=== PATIENT | male | born 1975 | race Caucasian/White ===

== ENCOUNTER → 2017-10-15 | Outpatient (CLI) | payer OTHER ==
[~2017-10-15] MED LIST: CEPH-13 PO; HYDR-385 PO; IBUP-56 PO
--- NOTE | 2017-10-15 18:13 | RADIOLOGY IMAGING REPORT ---
FACILITY: [facility] - [place] PATIENT NAME: Jesus Ngo : 1975 MR: [id number] V: [id number] EXAM DATE: ORDERING PHYSICIAN: JESUS WARD TECHNOLOGIST: Location: [facility] Patient: Jesus Ngo : 1975 Visit/Account:[id number] Date of Sevice: 10/15/2017 Examination: ULTRASOUND OF THE SCROTUM AND TESTES Comparison: None available. History: Right testicle swelling. Findings: Standard ultrasound of the testicles and scrotum with color flow and spectral analysis. Right testicle: 5.7 x 3.1 x 4.6 cm. Heterogeneously enlarged testicle containing at least 2 dominant masses. Within the lateral/midportion of the testicle is a 2.2 x 2.4 x 1.8 cm heterogeneous mass and in the medial/inferior testicle is a 2.2 x 2.8 x 1.8 cm mass. Both masses demonstrate increased inter nal vascularity on Doppler interrogation. Right epididymis: Within normal limits. Left testicle: 2.9 x 1.7 x 2.5 cm. Morphologically normal left testicle with normal waveforms on Dopp ler interrogation. Left epididymis: Within normal limits. Hydrocele: None Varicocele: None Scrotum: Negative. IMPRESSION: Asymmetrically enlarged right testicle containing at least two masses is highly suspicious for a test icular malignancy. Changes secondary to trauma or infection are considered less likely. Results were discussed with JESUS WARD at 10/15/2017 6:07 PM. Report Dictated By: Kev Slaughter MD at 10/15/2017 5:56 PM Report E-Signed By: Kev Slaughter MD at 10/15/2017 6:08 PM WSN:[id number]
== END ==
LOC: US 15:56
DX: N50.9 Disorder of male genital organs, unspecified (principal)
CPT/HCPCS: 76870

== ENCOUNTER 2017-10-18 07:50 | Observation (INO) | payer OTHER ==
[2017-10-18] VITALS (22 sets, daily range): BP systolic 91–133; BP diastolic 58–90
[~2017-10-18] VITALS: Ht 177.8 cm; Wt 85.7 kg
[2017-10-18] MEDS ORDERED: fentaNYL CITR 250 MCG/5 ML AMP ONE (10:07)
[2017-10-18] MEDS ORDERED: LIDOCAINE MPF 1% 5 ML VIAL ONE (10:08)
[2017-10-18] MEDS ORDERED: PROPOFOL EMUL(*) 10MG/ML 20 ML 20 ML ONE (10:08)
[2017-10-18] MEDS ORDERED: DEXAMETHASONE SOD PHOS 10MG/ML ONE (10:08)
[2017-10-18] MEDS ORDERED: ONDANSETRON 4 MG/2 ML VIAL ONE (10:08)
[2017-10-18 10:17] LABS: PLATELET COUNT, AUTOMATED 164 K/uL (150-450)
[2017-10-18] MEDS ORDERED: cefTRIAXone(*) 1 GM VIAL 1 GM in NS(*) 0.9% 100 ML ADDVANT BAG 100 ML IVPB ONE (10:30)
[2017-10-18] MEDS ORDERED: NORMOSOL R SOLN(*) 1000 ML BAG 1,000 ML IV PRN (10:30)
[2017-10-18] MEDS ORDERED: LIDOCAINE/SOD BICARB 8.4% SYR ID ONE (10:30)
[2017-10-18] MEDS ORDERED: cefTRIAXone 1 GM VIAL IVP ONE (10:30)
[2017-10-18] MEDS ORDERED: MIDAZOLAM 2 MG/2 ML VIAL IVP PRN (10:30)
[2017-10-18] MEDS ORDERED: FAMOTIDINE 20 MG TAB PO ONE (10:30)
[2017-10-18] MEDS ORDERED: KETAMINE HCL 200 MG/20 ML MDV ONE (11:17)
[2017-10-18] MEDS ORDERED: POVIDONE IOD 10% OINT 30 GM TB TP ONE (11:17)
[2017-10-18] MEDS ORDERED: ceFAZolin(*) 1 GM VIAL 1 GM, GENTAMICIN(*) 80 MG/2 ML VIAL 60 MG in NS 0.9% IRRIGATION ... IR ONE ×2 (11:25)
[2017-10-18] MEDS ORDERED: ROCURONIUM BROM 10 MG/ML 5 ML ONE (11:30)
--- NOTE | 2017-10-18 12:28 | RADIOLOGY IMAGING REPORT ---
FACILITY: [facility] - [place] PATIENT NAME: Jesus Ngo : 1975 MR: [id number] V: [id number] EXAM DATE: ORDERING PHYSICIAN: JESUS WARD TECHNOLOGIST: Location: [facility] Patient: Jesus Ngo : 1975 Visit/Account:[id number] Date of Sevice: 10/16/2017 Exam type: CHEST PA AND LAT History: Smoker, preop Comparison: None. Findings: The lungs are free of acute effusions, infiltrates or edema. The cardiac silhouette is normal in siz e. The trachea is in midline. IMPRESSION: 1. No acute cardiopulmonary process is seen Report Dictated By: Fadumo Hewitt MD at 10/18/2017 12:24 PM Report E-Signed By: Fadumo Hewitt MD at 10/18/2017 12:25 PM WSN:[email or web address]
[2017-10-18] MEDS ORDERED: KETOROLAC 30 MG/ML VIAL ONE (13:13)
[2017-10-18] MEDS ORDERED: fentaNYL CITR 100 MCG/2 ML AMP ONE (13:29)
[2017-10-18] MEDS ORDERED: HYDROmorphone HCL 2 MG/ML SDV ONE (13:40)
[2017-10-18] MEDS ORDERED: ACETAMIN/CODEINE #3 300-30 MG PO PRN (14:40)
[2017-10-18] MEDS ORDERED: FLUSH 10 ML SYR IVP PRN (14:40)
[2017-10-18] MEDS ORDERED: ZOLPIDEM TARTRATE 5 MG TAB PO PRN (14:40)
[2017-10-18] MEDS ORDERED: NALOXONE HCL 0.4 MG/ML VIAL IVP PRN (14:40)
[2017-10-18] MEDS ORDERED: HYDROmorphone PCA 6 MG/30 ML IV PRN (14:40)
[2017-10-18] MEDS: LR(*) 1000 ML BAG 1,000 ML IV PRN (14:57)
[2017-10-18] MEDS ORDERED: ONDANSETRON 4 MG/2 ML VIAL IVP PRN (15:05)
[2017-10-18] MEDS ORDERED: GENTAMICIN(*) 80 MG/2 ML VIAL 160 MG in NS(*) 0.9% 100 ML BAG 100 ML IVPB ONE (16:00)
[2017-10-18] MEDS: BENZALKONIUM CL 1:750 TOP SOLN TP SCH (21:00)
[2017-10-18] MEDS: FAMOTIDINE 20 MG TAB PO SCH (21:35)
[2017-10-18] MEDS: DOCUSATE SODIUM 100 MG CAP PO SCH (21:35)
[2017-10-18] MEDS: NEOMYCIN/POLYMYX/BACITR OINT 1 PACKET TP SCH (21:35)
[2017-10-18] MEDS: GENTAMICIN/NS 80 MG/100 ML PB 100 ML IVPB SCH (23:52)
[2017-10-19] MEDS: LR(*) 1000 ML BAG 1,000 ML IV PRN (01:08)
[2017-10-19 03:13] VITALS: BP 122/65
[2017-10-19 07:21] VITALS: BP 115/70
[2017-10-19] MEDS: GENTAMICIN/NS 80 MG/100 ML PB 100 ML IVPB SCH (07:32)
[2017-10-19] MEDS: BENZALKONIUM CL 1:750 TOP SOLN TP SCH (09:00)
[2017-10-19] MEDS ORDERED: cefTRIAXone 1 GM VIAL IVP ONE (09:15)
[2017-10-19] MEDS ORDERED: APAP/HYDROCODONE 325/7.5 TAB PO ONE (09:20)
[2017-10-19] MEDS ORDERED: FAMO20TA28 PO (09:25)
[2017-10-19] MEDS ORDERED: CIPR-214 PO (09:25)
[2017-10-19] MEDS ORDERED: HYDR-4308 PO (09:25)
[2017-10-19] MEDS ORDERED: IBUP800T37 PO (09:26)
[2017-10-19] MEDS ORDERED: DOCU-416 PO (09:26)
[2017-10-19] MEDS: FAMOTIDINE 20 MG TAB PO SCH (09:35)
[2017-10-19] MEDS: DOCUSATE SODIUM 100 MG CAP PO SCH (09:35)
[2017-10-19] MEDS: NEOMYCIN/POLYMYX/BACITR OINT 1 PACKET TP SCH (09:35)
--- NOTE | 2017-10-19 10:39 | OPERATIVE REPORT 1 ---
EVENT DATE: October 18, 2017 SURGEON: Jac Baker MD ANESTHESIOLOGIST: Migue Cavanaugh MD ANESTHESIA: General PREOPERATIVE DIAGNOSIS Right testicular lesion, etiology ? POSTOPERATIVE DIAGNOSIS Right testicular lesion, etiology ? PROCEDURE PERFORMED 1. Exploration of right testicle and groin area. 2. Right radical orchiectomy. 3. Right Bassini herniorrhaphy. 4. 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 DESCRIPTION OF PROCEDURE Under general anesthetic, the patient was prepped and draped in the supine position. Incision was made along the right groin area. Tissue was excised down to the underlying external oblique fascia. The external oblique fascia was incised from the external ring area to the internal ring area. The cord was freed from its attachments and clamped off. The right testicle was manipulated from the right hemiscrotum into the incisional area and isolated. The tissues were dissected from the testicle and the cord cephalad to the internal ring area. The vas deferens was isolated at the internal ring area, tied off with 2-0 chromic catgut suture. There was a large lipomatous cord that was from the cord and cross- clamped and tied off with 0 chromic catgut suture. The testicle was explored at the internal ring area. There was an approximately 1-inch hernia dissected off the proximal cord and reflected into the abdominal cavity. The cord was cross-clamped with large right angle clamps. The most proximal clamp was removed and a free tie was placed over the clamped tissue with #1 silk suture. A tie was placed less than 1 mm and distal to the free tie with #1 silk suture. The cord was divided between the clamps. The cord was hemoclipped. The stump was retracted into the infra-abdominal cavity. The conjoined tendon was brought down to the shelving margin of Poupart's ligament throughout its length. It started at the external ring area and then closed it off the internal ring area. The nerve was identified and preserved. The conjoined tendon was brought down to the shelving margin of Poupart's ligament throughout the length of the incision. This satisfactorily shored up the floor of the inguinal canal and and closed the internal ring area. The wound was irrigated with double antibiotic solution several times throughout the procedure as well as the scrotum. The external oblique was closed with interrupted 2-0 silk ligatures throughout its length. The wound was irrigated with double antibiotic solution. The subcutaneous tissue was closed with interrupted 3-0 plain catgut. The skin was closed with running 4-0 Vicryl subcuticular. The wound was cleaned and dressed in the usual fashion. Glue was applied to the incision and steri-strips. Estimated blood loss was just a few mL. The patient tolerated the procedure satisfactorily and returned to the recovery room in satisfactory condition. This is a 42-year-old white male who presented to the office this past Wednesday complaining of enlarged right testicle for approximately 1-1/2 weeks' duration. The testicles were relatively pain free but two to three times larger than the right testicle. The patient noticed after dirt biking approximately 1-1/2 weeks prior to that time had noticed about three days later the swollen right testicle. There is no rubor, calor and no more pain. Options were discussed with the patient. The beta HCG test was negative and all laboratory studies were negative and within normal limits. Pathological diagnosis is pending. The patient will be discharged home in the a.m. if all is going well, to force fluids, 12 glasses of water per day, activities are restricted to careful ambulation. The patient is to continue his usual medications. A copy of instructions was given to the patient. The patient will be discharged on Cipro, Pepcid, Motrin and Truxton therapy in addition to his usual medications. MTDD
[2017-10-19] MEDS ORDERED: cefTRIAXone 1 GM VIAL IVP SCH (12:00)
== END 2017-10-19 09:11 | disposition home or self-care (01) ==
LOC: OR 07:50 → ICU 14:27
DX: C62.91 Malignant neoplasm of right testis, unspecified whether descended or undescended (principal); F17.200 Nicotine dependence, unspecified, uncomplicated
CPT/HCPCS: 36415; 49505; 54520; 71046; 82105; 83615; 84702; 85025; 88307; G0378; J0696; J1100; J1170; J1580; J1885; J2001; J2250; J2405; J2704; J3010; J3490; J7050; J7120; 82040; 82247; 82310; 82374; 82435; 82565; 82947; 84075; 84132; 84155; 84295; 84450; 84460; 84520

== ENCOUNTER → 2017-12-08 | Outpatient (CLI) | payer OTHER ==
[~2017-12-08] MED LIST changes: +CIPR-214 PO; +DOCU-416 PO; +FAMO20TA28 PO; +HYDR-4308 PO; +IBUP800T37 PO; +IOPAMIDOL 76% 75 ML INFUS BTL 75 ML ONE
--- NOTE | 2017-12-08 16:42 | RADIOLOGY IMAGING REPORT ---
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 Coronal and sagittal reformatting also performed. Dose Lowering Technique One of the following dose optimization techniques was utilized in the performance of this exam: Autom ated exposure control; adjustment of the mA and/or kV according to the patient's size; or use of an i terative reconstruction technique. Specific details can be referenced in the facility's radiology C T exam operational policy. CONTRAST: 75 mL Isovue-370 COMPARISON: US testicular ultrasound October 15, 2017 FINDINGS: Visualized lung bases: Negative. Hepatobiliary: Negative. Spleen: Accessory splenule Adrenals: Negative. Pancreas: Negative. Kidneys ureters or bladder: Negative. Genitalia: There appears to been a right orchiectomy. The right seminal vesicle appears mildly prominent and appears to contain a 7 mm rounded hypoattenuat ing lesion GI: There is no evidence of bowel obstruction or bowel wall thickening. The appendix is visualized and does not appear inflamed. Vessels/spaces/nodes: There is an abnormal appearing 1.9 x 1.8 x 2.9 cm lymph node just below the le tara of the left renal vein. This may actually represent two contiguous lymph nodes. There are addit ional smaller subcentimeter retroperitoneal lymph nodes Cm aortic caval lymph node Bones/soft tissues: There is a small umbilical hernia containing fat. Just above the level the umbi licus is an additional small ventral hernia also containing fat. There is a left inguinal hernia containing fat . There are mild spondylotic changes in the lumbar spine Additional findings: None pertinent. IMPRESSION: Postsurgical changes from a right orchiectomy. The right seminal vesicle appears mildly prominent appears to contain a 7 mm rounded hypoattenuating lesion There is an abnormal appearing 1.9 x 1.8 x 2.9 cm lymph node just below the level of the left renal v ein. This may actually represent two contiguous lymph nodes Small umbilical hernia and small ventral hernia just above the umbilicus both containing fat Left inguinal hernia containing fat Report Dictated By: Fadumo Hewitt MD at 12/08/2017 4:28 PM Report E-Signed By: Fadumo Hewitt MD at 12/08/2017 4:37 PM WSN:[email or web address]
== END ==
LOC: CT 07:03
PROVIDERS: ATTEND Urology
DX: N49.0 Inflammatory disorders of seminal vesicle (principal); Z90.79 Acquired absence of other genital organ(s); K42.9 Umbilical hernia without obstruction or gangrene; K43.9 Ventral hernia without obstruction or gangrene; K40.90 Unilateral inguinal hernia, without obstruction or gangrene, not specified as recurrent
CPT/HCPCS: 74177; Q9967